=== PATIENT | male | born 1980 | race Caucasian/White ===

== ENCOUNTER 2017-03-07 10:33 | Inpatient (IN) | payer MEDICAID ==
[~2017-03-07] VITALS: Ht 170.2 cm; Wt 75.2 kg
[~2017-03-07 10:33] MED LIST: ALBU8HFA4 IH; QUET200T PO
[2017-03-07] MEDS ORDERED: RISP.5 PO (11:05)
[2017-03-07 11:40] LABS: BASOPHILS % (AUTO) 0.3 % (0.0-2.0); EOSINOPHILS % (AUTO) 0.4 % (1.0-6.0); HEMATOCRIT 50.2 % (41-53); HEMOGLOBIN 16.8 g/dL (13.5-17.5); LYMPHOCYTES # (AUTO) 1.6 K/uL (1.0-4.8); LYMPHOCYTES % (AUTO) 16.8 % (22.0-44.0); MEAN CORPUSCULAR HEMOGLOBIN 29.7 pg (26.0-34.0); MEAN CORPUSCULAR HGB CONC 33.5 G/dL (31.0-37.0); MEAN CORPUSCULAR VOLUME 89 fL (80-100); MONOCYTES # (AUTO) 0.6 K/uL (0.1-1.0); MONOCYTES % (AUTO) 6.1 % (2.0-9.0); NEUTROPHILS # (AUTO) 7.3 K/uL (1.8-7.7); NEUTROPHILS % (AUTO) 76.4 % (40.0-70.0); PLATELET COUNT (AUTO) 353 K/uL (150-450); RED BLOOD CELL COUNT(AUTO) 5.67 MIL/uL (4.50-5.90); RED CELL DISTRIBUTION WIDTH 14.8 % (11.5-14.5); WHITE BLOOD COUNT (AUTO) 9.5 K/uL (4.5-11.0)
[2017-03-07 11:52] LABS: ANION GAP 16 mmol/L (8-16); CALCIUM, TOTAL 9.5 mg/dL (8.8-10.5); CARBON DIOXIDE 24 mmol/L (22-29); CHLORIDE 101 mmol/L (98-107); CREATININE 0.93 mg/dL (0.60-1.30); GLOMERULAR FILTR. RATE CALC > 60 mL/min (>60); SODIUM SERUM 141 mmol/L (136-145); UREA NITROGEN, BLOOD 11 mg/dL (7-18)
[2017-03-07 11:59] LABS: ALANINE AMINOTRANSFERASE 57 U/L (12-78); ALBUMIN 4.8 g/dL (3.4-5.0); ASPARTATE AMINOTRANSFERASE 47 U/L (15-37); BILIRUBIN,TOTAL 1.9 mg/dL (0.1-1.0); TOTAL PROTEIN, SERUM 8.2 g/dL (6.4-8.2)
[2017-03-07] MEDS ORDERED: HALOPERIDOL LACTATE 5 MG/ML VIAL IM ONE (12:00)
[2017-03-07] MEDS ORDERED: LORazepam 2 MG/ML VIAL IM ONE (12:00)
[2017-03-07] MEDS ORDERED: DiphenhydrAMINE HCL 50 MG/ML VIAL IM ONE (12:00)
[2017-03-07] MEDS ORDERED: HALOPERIDOL 5 MG TABLET PO PRN (13:30)
[2017-03-07] MEDS ORDERED: ZOLPIDEM TARTRATE 10 MG TABLET PO PRN (13:30)
[2017-03-07] MEDS ORDERED: POTASSIUM CHLORIDE 20 MEQ ER TABLET PO ONE (14:30)
[2017-03-07 15:29] LABS: CHOL/HDL RATIO 3.2 (4.2-7.3)
[2017-03-07] MEDS: LORazepam 2 MG TABLET PO PRN (16:45)
[2017-03-07] MEDS: QUEtiapine FUMARATE 200 MG TABLET PO SCH (16:45)
[2017-03-07 17:01] VITALS: BP 111/83
[2017-03-08 07:05] VITALS: BP 110/70
[2017-03-08 08:19] VITALS: BP 105/65
[2017-03-08] MEDS: NICOTINE 21 MG/24 HOUR PATCH TD SCH (08:29)
[2017-03-08] MEDS: QUEtiapine FUMARATE 200 MG TABLET PO SCH ×2 (08:29→17:36)
[2017-03-08] MEDS ORDERED: ALBUTEROL SULFATE HFA 90 MCG/PUFF 8 GM INHALER IH PRN (09:45)
[2017-03-08] MEDS ORDERED: BACITRACIN 28.4 GM OINTMENT TP PRN (09:45)
[2017-03-08] MEDS ORDERED: POTASSIUM CHLORIDE 20 MEQ ER TABLET PO ONE (09:45)
[2017-03-08] MEDS ORDERED: MAG HYDROX/AL HYDROX/SIMETH ES 30 ML SUSPENSION UDCUP PO PRN (09:45)
[2017-03-08] MEDS ORDERED: ONDANSETRON HCL 4 MG TABLET PO PRN (09:45)
[2017-03-08] MEDS ORDERED: ACETAMINOPHEN 325 MG TABLET PO PRN (09:45)
[2017-03-08] MEDS ORDERED: CloNIDine HCL 0.1 MG TABLET PO PRN (09:45)
[2017-03-08] MEDS ORDERED: BENZOCAINE/MENTHOL LOZENGE MM PRN (09:45)
[2017-03-08] MEDS ORDERED: LOPERAMIDE HCL 2 MG CAPSULE PO PRN (09:45)
[2017-03-08] MEDS ORDERED: PETROLATUM,WHITE 71 GM JELLY TP PRN (09:45)
[2017-03-08] MEDS ORDERED: IBUPROFEN 600 MG TABLET PO PRN (09:45)
[2017-03-08] MEDS ORDERED: MAGNESIUM HYDROXIDE SUSPENSION 30 ML UDCUP PO PRN (09:45)
[2017-03-08 16:16] VITALS: BP 122/77
[2017-03-09 05:51] VITALS: BP 142/87
[2017-03-09] MEDS: LORazepam 2 MG TABLET PO PRN ×2 (06:41→16:09)
[2017-03-09 08:23] VITALS: BP 116/77
[2017-03-09] MEDS: NICOTINE 21 MG/24 HOUR PATCH TD SCH (08:31)
[2017-03-09] MEDS: QUEtiapine FUMARATE 200 MG TABLET PO SCH ×2 (08:31→16:09)
[2017-03-09 16:34] VITALS: BP 126/86
[2017-03-10 06:38] VITALS: BP 133/82
[2017-03-10] MEDS: QUEtiapine FUMARATE 200 MG TABLET PO SCH ×2 (08:07→16:21)
[2017-03-10] MEDS: NICOTINE 21 MG/24 HOUR PATCH TD SCH (08:08)
[2017-03-10 09:12] VITALS: BP 112/70
[2017-03-10] MEDS: LORazepam 2 MG TABLET PO PRN (12:23)
[2017-03-10 16:13] VITALS: BP 123/72
[2017-03-11 06:24] VITALS: BP 107/70
[2017-03-11 08:42] VITALS: BP 117/68
[2017-03-11] MEDS: NICOTINE 21 MG/24 HOUR PATCH TD SCH (10:04)
[2017-03-11] MEDS: QUEtiapine FUMARATE 200 MG TABLET PO SCH ×2 (10:04→16:24)
[2017-03-11 15:59] VITALS: BP 136/76
[2017-03-11 16:00] VITALS: BP 136/76
[2017-03-11] MEDS: LORazepam 2 MG TABLET PO PRN (21:41)
[2017-03-12 06:29] VITALS: BP 109/62
[2017-03-12] MEDS: QUEtiapine FUMARATE 200 MG TABLET PO SCH (08:05)
[2017-03-12] MEDS: NICOTINE 21 MG/24 HOUR PATCH TD SCH (08:05)
[2017-03-12 08:08] VITALS: BP 119/66
== END 2017-03-12 13:15 | disposition home or self-care (01) | DRG 750 ==
LOC: EMS 10:34 → B2S 14:21
PROVIDERS: ADMIT Psychiatry & Neurology Child & Adolescent Psychiatry; ATTEND Psychiatry & Neurology Psychiatry
DX: F25.0 Schizoaffective disorder, bipolar type (principal); F15.20 Other stimulant dependence, uncomplicated; R45.851 Suicidal ideations; F12.90 Cannabis use, unspecified, uncomplicated; G47.00 Insomnia, unspecified; Z91.19 Patient's noncompliance with other medical treatment and regimen; F10.929 Alcohol use, unspecified with intoxication, unspecified; Y90.1 Blood alcohol level of 20-39 mg/100 ml; R03.0 Elevated blood-pressure reading, without diagnosis of hypertension; Z72.0 Tobacco use; F43.10 Post-traumatic stress disorder, unspecified
CPT/HCPCS: 84132; 96372; 99285; G0480; J1200; J1630; J2060

== ENCOUNTER 2017-04-24 01:17 | Emergency (ER) | payer MEDICAID, OTHER ==
[~2017-04-24] VITALS: Ht 171.4 cm; Wt 77.3 kg
[~2017-04-24 01:17] MED LIST changes: -ALBU8HFA4 IH; -QUET200T PO; +QUET50TA PO
[2017-04-24 01:59] LABS: HEMOGLOBIN 16.5 g/dL (13.5-17.5); MEAN CORPUSCULAR HEMOGLOBIN 30.2 pg (26.0-34.0); MEAN CORPUSCULAR HGB CONC 34.3 G/dL (31.0-37.0); MEAN CORPUSCULAR VOLUME 88 fL (80-100); PLATELET COUNT (AUTO) 354 K/uL (150-450); RED BLOOD CELL COUNT(AUTO) 5.46 MIL/uL (4.50-5.90); RED CELL DISTRIBUTION WIDTH 14.4 % (11.5-14.5); WHITE BLOOD COUNT (AUTO) 15.1 K/uL (4.5-11.0)
[2017-04-24 02:09] LABS: ANION GAP 16 mmol/L (8-16); CALCIUM, TOTAL 9.9 mg/dL (8.8-10.5); CARBON DIOXIDE 24 mmol/L (22-29); CHLORIDE 102 mmol/L (98-107); GLOMERULAR FILTR. RATE CALC > 60 mL/min (>60); POTASSIUM 4.3 mmol/L (3.5-5.1); SODIUM SERUM 142 mmol/L (136-145); UREA NITROGEN, BLOOD 14 mg/dL (7-18)
[2017-04-24 02:15] LABS: ALANINE AMINOTRANSFERASE 46 U/L (12-78); ALBUMIN 4.9 g/dL (3.4-5.0); ASPARTATE AMINOTRANSFERASE 25 U/L (15-37); BILIRUBIN,TOTAL 0.9 mg/dL (0.1-1.0); TOTAL PROTEIN, SERUM 8.5 g/dL (6.4-8.2)
[2017-04-24 02:31] LABS: BAND NEUTROPHILS % (MANUAL) 9 % (1-5); LYMPHOCYTES % (MANUAL) 5 % (22-44); TOTAL CELLS COUNTED 100
[2017-04-24 02:43] VITALS: BP 142/89
[2017-04-24] MEDS ORDERED: QUEtiapine FUMARATE 100 MG TABLET PO ONE (02:45)
== END 2017-04-24 03:09 | disposition home or self-care (01) ==
LOC: EMS 01:19
DX: R44.0 Auditory hallucinations (principal); F15.10 Other stimulant abuse, uncomplicated; F32.9 Major depressive disorder, single episode, unspecified; F17.210 Nicotine dependence, cigarettes, uncomplicated; F12.90 Cannabis use, unspecified, uncomplicated; F19.90 Other psychoactive substance use, unspecified, uncomplicated
CPT/HCPCS: 36415; 80053; 80307; 85025; 99284; G0480

== ENCOUNTER 2017-04-24 06:52 | Emergency (ER) | payer OTHER ==
[~2017-04-24] VITALS: Ht 171.4 cm; Wt 77.3 kg
[2017-04-24 07:17] VITALS: BP 125/80
== END 2017-04-24 07:25 | disposition home or self-care (01) ==
LOC: EMS 06:53
DX: F25.9 Schizoaffective disorder, unspecified (principal); F32.9 Major depressive disorder, single episode, unspecified; F15.10 Other stimulant abuse, uncomplicated; F12.90 Cannabis use, unspecified, uncomplicated; F17.210 Nicotine dependence, cigarettes, uncomplicated
CPT/HCPCS: 99284